=== PATIENT | female | born 1990 | race African-American/Black ===

== ENCOUNTER 2020-01-11 09:39 | Outpatient (RCR) | payer MEDICARE | END 2020-01-29 | LOC: OT 09:39 | PROVIDERS: ATTEND Specialist | DX: S40.011A Contusion of right shoulder, initial encounter (principal); M24.611 Ankylosis, right shoulder; M77.8 Other enthesopathies, not elsewhere classified ==

== ENCOUNTER 2020-01-22 11:00 | Outpatient (RCR) | payer MEDICARE | END 2020-01-29 | LOC: OT 11:00 | PROVIDERS: ATTEND Specialist | DX: S40.011A Contusion of right shoulder, initial encounter (principal); M24.611 Ankylosis, right shoulder; M77.8 Other enthesopathies, not elsewhere classified ==

== ENCOUNTER 2020-02-15 13:25 | Outpatient (RCR) | payer MEDICARE | END 2020-02-29 | LOC: OT 13:25 | PROVIDERS: ATTEND Specialist | DX: M77.9 Enthesopathy, unspecified (principal); M24.611 Ankylosis, right shoulder ==